=== PATIENT | male | born 1960 | race Caucasian/White ===

== ENCOUNTER → 2020-06-05 12:32 | Outpatient (CLI) | payer MEDICAID, SELFPAY ==
--- NOTE | 2020-06-05 12:36 | EKG12_ITS ---
Test Reason : PRE OP Blood Pressure : / mmHG Vent. Rate : 069 BPM Atrial Rate : 069 BPM P-R Int : 000 ms QRS Dur : 122 ms QT Int : 424 ms P-R-T Axes : 000 033 044 degrees QTc Int : 454 ms Sinus Rhythm with PAC's Left bundle branch block Abnormal ECG Confirmed by FERNIE DAWKINS, JENNIFER ([id number]), photography editor TANI MACIAS ([id number]) on 06/08/2020 10:36:08 AM Referred By: Leydi Miller Confirmed By:JENNIFER ENCISO MD
== END ==
PROVIDERS: PCP Nurse Practitioner Adult Health; Referring Provider Nurse Practitioner Adult Health; Visit Provider Nurse Practitioner Adult Health
DX: I49.9 Cardiac arrhythmia, unspecified (principal)
CPT/HCPCS: 93005; 93225; 93226

== ENCOUNTER → 2020-09-02 06:19 | Outpatient (CLI) | payer MEDICAID, SELFPAY ==
[2020-08-19 13:48] VITALS: BMI 24.7
--- NOTE | 2020-09-02 09:03 | STRESSREP ---
Stress Test Report Pharmacologic myocardial perfusion stress test. 59-year-old man with a history of hypertension and syncope. Stress protocol: Resting EKG demonstrates sinus bradycardia with a rate of 58 bpm frequent premature ventricular complexes noted in the pattern of bigeminy. Resting blood pressure is 144/78 mmHg. 0.4 mg of regadenoson was infused per usual protocol followed by rapid intravenous saline flush injection continuous quality assurance monitor final was performed. The maximum heart rate attained was 91 bpm which was 56% of max impacted heart rate the maximum workload was 1 metabolic equivalent. At rest there were no ST or T wave changes noted to suggest abnormal flow reserve at peak infusion nonspecific ST changes were noted with no meet the criteria for ischemia. The final blood pressure was 130/72 mmHg. Myocardial perfusion protocol. 11.4 mCi of technetium 99m sestamibi was injected at rest. 0.4 mg of regadenoson was infused per usual protocol at peak infusion 33.5 mCi of technetium 99m sestamibi was injected stress images were obtained stress and rest images were reconstructed and compared in the short axis vertical long horizontal long axis. Gated images were not obtained Perfusion SPECT analysis: Review of the stress images demonstrate normal uptake of tracer noted in all areas of myocardium the rest images similarly demonstrate normal uptake of tracer noted in all areas of the myocardium. No reversibility was noted to suggest ischemia no previous infarct is noted. Conclusion: Normal pharmacologic myocardial perfusion stress test. Premature ventricular complexes noted.
== END ==
PROVIDERS: PCP Nurse Practitioner Adult Health; Referring Provider Internal Medicine Cardiovascular Disease; Visit Provider Internal Medicine Cardiovascular Disease
DX: R55 Syncope and collapse (principal)
CPT/HCPCS: 78452; 93017; A9500; A4216; J2785

== ENCOUNTER → 2020-09-23 13:52 | Outpatient (CLI) | payer MEDICAID, SELFPAY ==
[2020-09-23 09:10] VITALS: BMI 24.0
[2020-09-23 14:53] LABS: Thyroid Stim Hormone (TSH) 0.39 uIU/mL (0.358-3.74)
== END ==
PROVIDERS: PCP Nurse Practitioner Adult Health; Referring Provider Internal Medicine Cardiovascular Disease; Visit Provider Internal Medicine Cardiovascular Disease
DX: I49.49 Other premature depolarization (principal)
CPT/HCPCS: 36415; 84443

== ENCOUNTER → 2020-10-13 13:45 | Outpatient (CLI) | payer MEDICAID, SELFPAY ==
[2020-10-13 13:00] VITALS: BMI 23.9
[2020-10-13 14:01] LABS: Absolute Lymphocyte Count 1.24 X10^3/uL (0.83-4.51); Absolute Neutrophil Count 5.9 X10^3/uL (2.0-7.7); Basophil# 0.02 X10^3/uL; Basophil% 0.2 % (0-1); Eosinophil# 0.03 X10^3/uL; Eosinophils% 0.4 % (0-5); Hematocrit 34.6 % (40-54); Hemoglobin 12.3 g/dL (13.0-16.5); Lymphocyte # 1.24 X10^3/ul (4.0); Lymphocyte % 15.1 % (19-41); Mean Corp Hgb Conc 35.5 g/dL (32-36); Mean Corpuscular Hgb 31.1 pg (27.0-32.0); Mean Corpuscular Volume 87.4 fL (80-94); Mean Platelet Vol. 8.9 fl (6.2-12.0); Monocyte# 0.97 X10^3/uL; Monocyte% 11.8 % (0-10); NRBC Flagged by Analyzer 0 % (0-5); Neutrophil # 5.88 X10^3/uL (2.7-7.7); Neutrophil % 71.6 % (47-70); Platelet Count 280 K/mm3 (150-450); RBC Distribution Width CV 13.5 % (11.6-14.6); RBC Distribution Width SD 43.3 fl (35.1-43.9); Red Blood Count 3.96 M/mm3 (4.6-6.2); White Blood Count 8.2 K/mm3 (4.4-11.0)
[2020-10-17 03:07] LABS: Alternaria tenuis <0.10 kU/L (Class 0); Ash, White <0.10 kU/L (Class 0); Aspergillus fumigatus <0.10 kU/L (Class 0); Bermuda Grass <0.10 kU/L (Class 0); Birch <0.10 kU/L (Class 0); Black Walnut <0.10 kU/L (Class 0); Cat Hair / Dander,Stand <0.10 kU/L (Class 0); Cedar, Mountain <0.10 kU/L (Class 0); Cladosporium herbarum <0.10 kU/L (Class 0); Cockroach, American 0.11 kU/L (Class 0/I); Cottonwood <0.10 kU/L (Class 0); D farinae Mite <0.10 kU/L (Class 0); D pteronyssinus <0.10 kU/L (Class 0); Dog Epithelia <0.10 kU/L (Class 0); Elm, American White <0.10 kU/L (Class 0); Immunoglobulin E 1672 IU/mL (6-495); Maple/Box Elder <0.10 kU/L (Class 0); Mulberry, White <0.10 kU/L (Class 0); Oak, White <0.10 kU/L (Class 0); Pecan <0.10 kU/L (Class 0); Penicillium Notatum <0.10 kU/L (Class 0); Pigweed, Rough <0.10 kU/L (Class 0); Ragweed, Short/Common <0.10 kU/L (Class 0); Russian Thistle <0.10 kU/L (Class 0); Sheep Sorrel <0.10 kU/L (Class 0); Sycamore, American <0.10 kU/L (Class 0); Timothy Grass <0.10 kU/L (Class 0)
[2020-10-17 07:51] LABS: Mouse Urine <0.10 kU/L (Class 0)
[2020-10-17 12:38] LABS: Immunoglobulin E 2136 IU/mL (6-495)
== END ==
PROVIDERS: PCP Nurse Practitioner Adult Health; Referring Provider Internal Medicine Critical Care Medicine; Visit Provider Internal Medicine Critical Care Medicine
DX: J44.9 Chronic obstructive pulmonary disease, unspecified (principal)
CPT/HCPCS: 36415; 82785; 85025; 86003

== ENCOUNTER → 2020-11-02 10:17 | Outpatient (CLI) | payer MEDICAID, SELFPAY ==
[2020-10-13 13:00] VITALS: BMI 23.9
--- NOTE | 2020-11-03 10:04 | PFT ---
INTRODUCTION: The patient is a 60-year-old male that presents for pulmonary function studies secondary to a diagnosis of COPD. Respiratory therapy reports good patient effort. Bronchodilators were used during testing. INTERPRETATION: Forced expiration spirometry demonstrates the presence of a moderately severe large airways obstructive ventilatory defect. There was no significant response to aerosolized bronchodilators. Spirograms are of good quality but do not plateau indicating slow emptying of the lungs. Body plethysmography was performed and revealed an elevated RV to 146% of predicted, indicative of underlying air trapping. Diffusing capacity by single breath CO is reduced at 67% of predicted. IMPRESSION: Irreversible moderately severe large airways obstructive ventilatory defect with associated air trapping and mild reduction in diffusing capacity.
== END ==
PROVIDERS: PCP Nurse Practitioner Adult Health; Referring Provider Internal Medicine Critical Care Medicine; Visit Provider Internal Medicine Critical Care Medicine
DX: J44.9 Chronic obstructive pulmonary disease, unspecified (principal)
CPT/HCPCS: 94060; 94726; 94729

== ENCOUNTER → 2020-11-26 06:33 | Outpatient (CLI) | payer MEDICAID, SELFPAY ==
[2020-10-13 13:00] VITALS: BMI 23.9
[2020-11-17 10:55] VITALS: BMI 23.4
--- NOTE | 2020-11-26 06:35 | CT_ITS ---
STUDY: LOW DOSE CT LUNG CANCER SCREENING REASON FOR EXAM: Male, 60 years old. Tobacco Dependency. Patient smoked half a pack per day for 40 years. RADIATION DOSAGE (If Supplied By Facility): CTDIvol = ( 2.01 ) mGy, DLP = ( 66.45 ) mGycm TECHNIQUE: No contrast was administered. Low dose technique was utilized (average mAS-38 and kVp 120). 1.25 mm axial source images with a slice interval of 1.25-mm were reconstructed in lung windows. 2.5 mm axial source images with a slice interval of 2.5-mm were reconstructed in lung windows. 5.0 mm axial source images with a slice interval of 5.0-mm were reconstructed in soft tissue windows. Nodule measured using lung windows on PACS and/or independent workstation with automated measurement of minimum and maximum diameter. Nodule measurement reported as average diameter rounded to the nearest whole number. Growth is defined as an increase ins size of greater than 1.5 mm. COMPARISON: None. NODULES: No suspicious nodules are seen. Emphysema: Hyperinflation. Emphysematous changes with findings suggestive of centrilobular emphysema. Bullous formation in both upper lobes worse on the right side. Bolus formation also seen in the lower lobes. There is thickening of the major fissures bilaterally suggestive of scarring. Mild linear scarring in the anterior aspect of the right middle lobe and lingular segment of the left upper lobe. Endobronchial lesion: None Aorta: Atherosclerotic plaque formation of the aortic arch. Coronary arteries: Coronary artery calcification. Mediastinal nodes: Small benign-appearing lymph nodes are seen within the mediastinum. Other chest and abdominal findings: CT/Low Dose CT Lung Screening IMPRESSION: Lung-RADS category 2 - Continue annual screening with LDCT in 12 months. IMPORTANT NOTES FOR USE: ACR Lung-RADS Version 1.1 Assessment Categories Release Date: 2018 Category: Coded 0-4 bases on nodule(s) with highest degree of suspicion. Negative screen is defined as categories 1 and 2; a positive screen is defined as categories 3 and 4. Category 3 and 4A nodules that are unchanged on interval CT should be coded as category 2, and individuals returned to screening in 12 months. Category 4X: Category 3 or 4 nodules with additional imaging findings that increase the suspicion of lung cancer, such as spiculation, GGN that doubles in size in 1 year, enlarged lymph notes, etc. Category Modifiers: S (significant finding unrelated to lung cancer) Electronically Signed: Diego Ricketts MD at 9:03 EDT , Service support ,
[2020-11-26 08:00] VITALS: PULSE 100; PULSE 101; PULSE 102; PULSE 80; PULSE 83; PULSE 99; O2SAT 94; O2SAT 96; O2SAT 97; O2SAT 98
--- NOTE | 2020-11-26 14:56 | PCM.PSN.6M ---
PSN 6 Minute Walk Test 6 Minute Walk Test 6 Minute Walk Test: 6 Minute Walk Test PSN:6-Minute Walk Test Start: 11/26/20 08:02 Freq: Status: Active Protocol: RESP.6MINW Document 11/26/20 08:00 ELSY (Rec: 11/26/20 08:06 [id number]) 6 Minute Walk Test Date Performed 11/26/20 Time Performed 08:00 Height 5 ft 5 in Weight: 68.039 kg Weight in Pounds 150.[address]: Venkat Rosales FIO2 (% Oxygen) 21 Assistive device used: None Pre-test Oxygen Delivery Method Room Air Pulse Ox (%) 97 Pulse Rate (60-100 beats/min) 80 Dyspnea Shorty Scale (0-10) 0 Exertion Shorty Scale (6-20) 6 1st minute Oxygen Delivery Method Room Air Pulse Ox (%) 94 Pulse Rate (60-100 beats/min) 101 H 2nd minute Oxygen Delivery Method Room Air Pulse Ox (%) 97 Pulse Rate (60-100 beats/min) 102 H 3rd minute Oxygen Delivery Method Room Air Pulse Ox (%) 96 Pulse Rate (60-100 beats/min) 99 4th minute Oxygen Delivery Method Room Air Pulse Ox (%) 96 Pulse Rate (60-100 beats/min) 102 H 5th minute Oxygen Delivery Method Room Air Pulse Ox (%) 97 Pulse Rate (60-100 beats/min) 101 H 6th minute Oxygen Delivery Method Room Air Pulse Ox (%) 96 Pulse Rate (60-100 beats/min) 100 Post-test Oxygen Delivery Method Room Air Pulse Ox (%) 98 Pulse Rate (60-100 beats/min) 83 Dyspnea Shorty Scale (0-10) 2 Exertion Shorty Scale (6-20) 8 Full Laps Walked 20 Partial Lap, Number of Tiles Walked 0 Total Distance Walked (ft) 1180 Interpretation Interpretation: The patient was able to ambulate 1180 feet over the course of 6 minutes on room air with no assistive devices or breaks. The patient experienced no significant desaturation, but did have a peak heart rate of 102 bpm. These findings are consistent with deconditioning. Recommendations Recommendations: The patient requires no supplemental oxygen at this time.
== END ==
PROVIDERS: PCP Nurse Practitioner Adult Health; Referring Provider Internal Medicine Critical Care Medicine; Visit Provider Internal Medicine Critical Care Medicine
DX: Z12.2 Encounter for screening for malignant neoplasm of respiratory organs (principal); J44.9 Chronic obstructive pulmonary disease, unspecified; F17.210 Nicotine dependence, cigarettes, uncomplicated
CPT/HCPCS: 71271; 94618

== ENCOUNTER 2021-08-09 12:18 | Outpatient (CLI) | payer MEDICAID, SELFPAY ==
[2021-08-09 12:49] LABS: Absolute Lymphocyte Count 1.14 X10^3/uL (0.83-4.51); Absolute Neutrophil Count 1.8 X10^3/uL (2.0-7.7); Basophil# 0.06 X10^3/uL; Basophil% 1.3 % (0-1); Eosinophil# 0.83 X10^3/uL; Eosinophils% 18.1 % (0-5); Hematocrit 42.2 % (40-54); Hemoglobin 14.9 g/dL (13.0-16.5); Lymphocyte # 1.14 X10^3/ul (0.83-4.51); Lymphocyte % 24.9 % (19-41); Mean Corp Hgb Conc 35.3 g/dL (32-36); Mean Corpuscular Hgb 30.7 pg (27.0-32.0); Mean Corpuscular Volume 86.8 fL (80-94); Mean Platelet Vol. 9.4 fl (6.2-12.0); Monocyte# 0.77 X10^3/uL; Monocyte% 16.8 % (0-10); NRBC Flagged by Analyzer 0 % (0-5); Neutrophil # 1.75 X10^3/uL (2.7-7.7); Neutrophil % 38.2 % (47-70); Platelet Count 239 K/mm3 (150-450); RBC Distribution Width CV 13.5 % (11.6-14.6); RBC Distribution Width SD 43.4 fl (35.1-43.9); Red Blood Count 4.86 M/mm3 (4.6-6.2); White Blood Count 4.6 K/mm3 (4.4-11.0)
--- NOTE | 2021-08-09 12:57 | RAD_ITS ---
STUDY: X-RAY CHEST REASON FOR EXAM: Male, 60 years old. CHRONIC OBSTRUCTIVE PULMONARY DISEASE W/ACUTE EXCERBATION TECHNIQUE: PA and lateral views of the chest. COMPARISON: 05/06/1960 FINDINGS: There is hyperinflation of the lungs consistent with chronic obstructive lung disease (COPD). There is no demonstrated pleural abnormality. Normal size heart. Normal mediastinum and fran. Normal visualized pulmonary arteries. Normal visualized aortic arch and descending thoracic aorta. Normal visualized thoracic spine. Normal visualized ribs, clavicles, and shoulders. There is no demonstrated abnormality of the visualized soft tissue structures of the upper abdomen. RAD/Chest PA and Lateral IMPRESSION: Emphysema without pneumonia or atelectasis. Electronically Signed: Werner Gatica MD at 16:58 EST Tel , Service support ,
[2021-08-09 13:30] LABS: Vitamin B12 286 pg/mL (211-911); Vitamin D,25 Hydroxy 31.3 ng/mL
[2021-08-09 13:41] LABS: ALB/GLOB Ratio 1.1 RATIO (0.9-2.4); AST(SGOT) 13 U/L (15-37); Alanine Aminotransfer ALT/SGPT 18 U/L (16-61); Albumin, Serum 4.2 g/dL (3.2-5.0); Alkaline Phosphatase 58 U/L (45-117); Anion Gap 6 (5-15); BUN 13 mg/dL (7-18); BUN/Creat Ratio 14.6 RATIO (10-20); Calcium,Total 9.5 mg/dL (8.5-10.1); Chloride 99 mmol/L (98-107); Cholesterol 168 mg/dL (200); Creatinine, Serum 0.89 mg/dL (0.70-1.30); EST Glomerular Filtration Rate 92 mL/min (>60); Est Glom Filt Rate - Afr Amer 112 mL/min (>60); Globulin 3.8 g/dL (2.2-4.2); Glucose 92 mg/dL (74-106); High Density Lipoprotein 52 mg/dL; Potassium 4.4 mmol/L (3.5-5.1); Sodium Level 134 mmol/L (136-145); Thyroid Stim Hormone (TSH) 2.08 uIU/mL (0.358-3.74); Triglycerides 114 mg/dL; Very Low Density Lipoprotein 23 mg/dL (5-40)
== END 2021-08-09 23:59 | disposition short-term general hospital (02) ==
LOC: LAB 12:20
PROVIDERS: Visit Provider Nurse Practitioner Adult Health
DX: J44.1 Chronic obstructive pulmonary disease with (acute) exacerbation (principal); R21 Rash and other nonspecific skin eruption; Z13.220 Encounter for screening for lipoid disorders; Z13.21 Encounter for screening for nutritional disorder; I10 Essential (primary) hypertension
CPT/HCPCS: 36415; 71046; 80053; 80061; 82306; 82607; 84443; 85025

== ENCOUNTER → 2021-11-08 | Outpatient (CLI) | payer MEDICAID, SELFPAY ==
--- NOTE | 2021-11-08 08:55 | RAD_ITS ---
INDICATION: UNSPECIFIED ABD PAIN EXAMINATION/TECHNIQUE: X-RAY - XR Abdomen W/ Decub and/or Erect Views COMPARISON: Chest radiograph from 08/09/2021. 05/06/2016. FINDINGS: BOWEL GAS PATTERN: Moderate stool burden throughout the large bowel. Otherwise nonobstructive bowel gas pattern. FREE AIR: None. CALCIFICATIONS: No abnormal calcifications observed. LOWER CHEST: No acute pathology. BONES AND SOFT TISSUES: No acute pathology. RAD/Abd Inc Decub and/or Erect IMPRESSION: Moderate stool burden throughout the large bowel suggestive of constipation. Otherwise no acute findings. Electronically Signed: Noble Martin, at 9:38 EDT ,
== END | disposition home or self-care (01) ==
LOC: RAD 08:52
PROVIDERS: Referring Provider Nurse Practitioner Adult Health; Visit Provider Nurse Practitioner Adult Health
DX: R10.9 Unspecified abdominal pain (principal); K59.00 Constipation, unspecified
CPT/HCPCS: 74019

== ENCOUNTER → 2021-11-29 | Outpatient (CLI) | payer MEDICAID, SELFPAY ==
--- NOTE | 2021-11-29 13:02 | CT_ITS ---
STUDY: LOW DOSE CT LUNG CANCER SCREENING REASON FOR EXAM: Male, 61 years old. Patient spoke one pack per day for 40 years. COPD. RADIATION DOSAGE (If Supplied By Facility): CTDIvol = ( 1.59 ) mGy, DLP = ( 57.19 ) mGycm TECHNIQUE: No contrast was administered. Low dose technique was utilized (average mAS-38 and kVp 120). 1.25 mm axial source images with a slice interval of 1.25-mm were reconstructed in lung windows. 2.5 mm axial source images with a slice interval of 2.5-mm were reconstructed in lung windows. 5.0 mm axial source images with a slice interval of 5.0-mm were reconstructed in soft tissue windows. COMPARISON: Comparison is made with prior study dated 11/26/2020. NODULES: No suspicious nodules are seen. Emphysema: Hyperinflation. Diffuse emphysematous changes with multiple bullous formation in both lungs involving both the upper and lower lobes. Mild scarring at the lung bases with thickening of the major fissures bilaterally. Endobronchial lesion: None Aorta: Atherosclerotic plaque formation of the aortic arch. CORONARY ARTERIES: Coronary artery calcification Heart: Unremarkable Pulmonary artery: Unremarkable Mediastinal nodes: Stable small benign-appearing mediastinal lymph nodes. Other chest and abdominal findings: CT/Low Dose CT Lung Screening IMPRESSION: Lung-RADS category 2 - Continue annual screening with LDCT in 12 months. IMPORTANT NOTES FOR USE: ACR Lung-RADS Version 1.1 Assessment Categories Release Date: 2018 Category: Coded 0-4 bases on nodule(s) with highest degree of suspicion. Negative screen is defined as categories 1 and 2; a positive screen is defined as categories 3 and 4. Category 3 and 4A nodules that are unchanged on interval CT should be coded as category 2, and individuals returned to screening in 12 months. Category 4X: Category 3 or 4 nodules with additional imaging findings that increase the suspicion of lung cancer, such as spiculation, GGN that doubles in size in 1 year, enlarged lymph notes, etc. Category Modifiers: S (significant finding unrelated to lung cancer) Electronically Signed: Diego Ricketts MD at 15:00 EDT ,
== END | disposition home or self-care (01) ==
LOC: CT 12:54
PROVIDERS: Visit Provider Nurse Practitioner Acute Care
DX: Z12.2 Encounter for screening for malignant neoplasm of respiratory organs (principal); F17.210 Nicotine dependence, cigarettes, uncomplicated
CPT/HCPCS: 71271

== ENCOUNTER → 2022-03-23 | Outpatient (CLI) | payer MEDICAID, SELFPAY ==
[2022-03-23 14:07] LABS: D-Dimer Quantitative (DVT/PE) 0.85 FEU/ug/m (0.27-0.49)
== END | disposition home or self-care (01) ==
PROVIDERS: Referring Provider Nurse Practitioner Acute Care; Visit Provider Nurse Practitioner Acute Care
DX: R06.02 Shortness of breath (principal)
CPT/HCPCS: 36415; 85379

== ENCOUNTER → 2022-03-30 | Outpatient (CLI) | payer MEDICAID, SELFPAY ==
--- NOTE | 2022-03-30 14:14 | CT_ITS ---
STUDY: CTA CHEST REASON FOR EXAM: Male, 61 years old. Rule out PE. Shortness of breath. History of Covid. RADIATION DOSAGE (If Supplied By Facility): CTDIvol = ( 6.73 ) mGy, DLP = ( 216.52 ) mGycm TECHNIQUE: The examination was performed with the intravenous administration of IV 100mL Isovue-370. Post-processing of the angiographic images was performed, with multiplanar reformation and 3D reconstruction. Individualized dose optimization techniques were used for this CT. COMPARISON: Comparison is made with prior study 11/26/2020. FINDINGS: Normal enhancement of the main pulmonary artery and right and left pulmonary arteries. Normal enhancement of the bilateral peripheral pulmonary arteries. There is no demonstrated pulmonary embolism. There is atherosclerotic calcification of the aortic arch with tortuosity. There is no demonstrated aortic dissection. There are calcifications of the coronary arteries. Normal mediastinum. Normal hilar regions. Normal visualized trachea and bronchi. Hyperinflation. Diffuse emphysematous changes with bullous formation worse in the upper and lower lobes with a large bulla formation. Mild scarring at the lung bases. Normal pleura. Normal chest wall structures. There are degenerative changes of thoracic spine. Loss of height of mid dorsal vertebrae. Normal visualized upper abdomen. CT/CTA Chest W/WO Contrast IMPRESSION: No evidence of a pulmonary embolism. Hyperinflation and diffuse emphysematous changes with bullous formation. Electronically Signed: Diego Ricketts MD at 14:59 EDT ,
[2022-03-30 14:46] LABS: CREATININE FINGERSTICK < 0.9 mg/dL (0.70-1.30); EGFR FINGERSTICK > 60.0000 mL/min (>60)
== END | disposition home or self-care (01) ==
LOC: CT 14:14
PROVIDERS: Referring Provider Nurse Practitioner Acute Care; Visit Provider Nurse Practitioner Acute Care
DX: R79.89 Other specified abnormal findings of blood chemistry (principal)
CPT/HCPCS: 71275; Q9967

== ENCOUNTER → 2022-06-01 | Outpatient (CLI) | payer MEDICAID, SELFPAY ==
[2022-06-01 13:39] LABS: Erythrocyte Sedimentation Rate 6 mm/hr (0-20)
[2022-06-01 13:45] LABS: Absolute Lymphocyte Count 0.36 X10^3/uL (0.83-4.51); Absolute Neutrophil Count 6.5 X10^3/uL (2.0-7.7); Basophil# 0.01 X10^3/uL; Basophil% 0.1 % (0-1); Hematocrit 35.1 % (40-54); Lymphocyte # 0.36 X10^3/ul (0.83-4.51); Lymphocyte % 4.8 % (19-41); Mean Corp Hgb Conc 34.2 g/dL (32-36); Mean Corpuscular Hgb 30.9 pg (27.0-32.0); Mean Corpuscular Volume 90.5 fL (80-94); Mean Platelet Vol. 10.5 fl (6.2-12.0); Monocyte# 0.54 X10^3/uL; Monocyte% 7.3 % (0-10); NRBC Flagged by Analyzer 0 % (0-5); Neutrophil # 6.48 X10^3/uL (2.7-7.7); Neutrophil % 87.3 % (47-70); POSITIVE DIFFERENTIAL YES; Platelet Count 230 K/mm3 (150-450); RBC Distribution Width CV 14.5 % (11.6-14.6); RBC Distribution Width SD 47.9 fl (35.1-43.9); Red Blood Count 3.88 M/mm3 (4.6-6.2); White Blood Count 7.4 K/mm3 (4.4-11.0)
[2022-06-01 13:49] LABS: Differential Indicated SCAN CRITERIA MET
[2022-06-01 14:06] LABS: Platelet Estimate ADEQUATE (ADEQ); Red Cell Morphology NORM C+C NORMAL (NORM C&C)
[2022-06-01 14:22] LABS: Anion Gap 7 (5-15); BUN 13 mg/dL (7-18); BUN/Creat Ratio 14.2 RATIO (10-20); CRP < 2.90 mg/L (0.0-3.0); Calcium,Total 8.6 mg/dL (8.5-10.1); Chloride 98 mmol/L (98-107); Creatinine, Serum 0.92 mg/dL (0.70-1.30); EST Glomerular Filtration Rate 90 mL/min (>60); Est Glom Filt Rate - Afr Amer 108 mL/min (>60); Glucose 104 mg/dL (74-106); Potassium 3.7 mmol/L (3.5-5.1); Sodium Level 132 mmol/L (136-145); Thyroid Stim Hormone (TSH) 0.51 uIU/mL (0.358-3.74)
[2022-06-06 17:25] LABS: Vitamin D 1,25-Dihydroxy 66.7 pg/mL (24.8-81.5)
== END | disposition home or self-care (01) ==
PROVIDERS: Internal Medicine Gastroenterology
DX: R29.6 Repeated falls (principal); R04.0 Epistaxis
CPT/HCPCS: 36415; 80048; 82652; 83735; 84443; 85025; 85652; 86140

== ENCOUNTER 2022-06-07 11:19 | Outpatient (CLI) | payer MEDICAID, SELFPAY ==
[2022-06-07 13:04] LABS: Vitamin B12 462 pg/mL (211-911)
[2022-06-07 13:12] LABS: Iron 89 ug/dL (65-175); Iron Binding Capacity,Total 354 ug/dL (250-450); PERCENT IRON SATURATION 25.1 % (15.0-55.0)
== END 2022-06-07 23:59 | disposition home or self-care (01) ==
PROVIDERS: Referring Provider Nurse Practitioner Family; Visit Provider Nurse Practitioner Family
DX: K50.90 Crohn's disease, unspecified, without complications (principal)
CPT/HCPCS: 36415; 82607; 82746; 83540; 83550

== ENCOUNTER → 2022-06-08 | Outpatient (CLI) | payer MEDICAID, SELFPAY ==
--- NOTE | 2022-06-08 19:10 | CT_ITS ---
STUDY: CT BRAIN WITHOUT CONTRAST REASON FOR EXAM: Male, 61 years old. REPEATED FALLS RADIATION DOSAGE (If Supplied By Facility): CTDIvol = ( 44.99 ) mGy, DLP = ( 846.73 ) mGycm TECHNIQUE: Transaxial CT imaging of the brain was performed without administration of intravenous contrast material. Individualized dose optimization techniques were used for this CT. COMPARISON: No relevant priors. FINDINGS: Normal soft tissue structures. Normal calvarium. Normal size ventricles and extra-axial spaces for the patient''s age. Normal white matter tracts of the cerebral hemispheres. Normal basal ganglia and thalami. Normal brainstem. Normal cerebellum. There is no intracranial hemorrhage. There are no findings of an acute ischemic infarction. There is mucosal thickening of the paranasal sinuses. CT/Brain/Head without Contrast IMPRESSION: Normal unenhanced CT scan of the brain. Electronically Signed: Danielito Dial MD at 19:51 EST ,
== END | disposition home or self-care (01) ==
DX: R29.6 Repeated falls (principal)
CPT/HCPCS: 70450

== ENCOUNTER 2022-07-05 12:43 | Day surgery (SDC) | payer MEDICAID, SELFPAY ==
[2022-07-05] VITALS (7 sets, daily range): BP systolic 146–166; BP diastolic 79–94; PULSE 56–69; RESP 16; TEMP 36.6–36.7; O2SAT 98–100; BMI 22.7
--- NOTE | 2022-07-05 12:50 | HP.PCM_ITS ---
History and Physical Date of Admission: 07/05/22 61 M who presents to the office today for Initial consult. Tasia established with this clinic 05.16.22 with referral from PCP. He was having difficulty with fatigue and pruritis Crohn?s Disease, previously diagnosed in 1994. He has been in remission for the last 5 years and medications were stopped. Previously maintained on an infusion with pills starting three days after infusion. However, in the last two months he has been having upper abdominal discomfort. At onset he was having col onoscopies approximately every month because of the amount of blood and resulting anemia; has not had one in the last ten years. Reports history of 65 polyps removed during one colonoscopy in the 1989?s. Denies Crohn?s complications. Fall of 65 feet in the last year with a lot of musculoskeletal issues and subsequent BM difficulty. Difficulty swallowing intermittently. History of EGD because of intense reflux. PMH asthma, COPD, anxiety, HTN, TIA. Established with pain management for chronic back pain. FH 5 brothers with CAD requiring stenting and history of ND versus NSTEMI. Father esophageal cancer. EGD [address] Alexandra CC. Pathology without pathologic changes or H.Pylori. CT abd/pel 1.6. for trauma noting diverticulosis; hypodense left kidney lesion. KUB 4.25. for abd pain noted moderate stool burden in large bowel. Exam Const General: cooperative and comfortable Nutritional Appearance: average body habitus and well nourished [facility] Head: normal to inspection Ears: hearing grossly normal bilaterally Nose: external nose normal Face and sinus: normal facial exam Mouth: oral mucosae normal Throat: posterior oropharynx normal Eyes General: appearance normal, both eyes and all related structures Neck Neck: normal visual inspection Chest Chest palpation & inspection: normal inspection of the chest and normal palpation of entire chest wall Resp Effort & Inspection: normal respiratory effort Auscultation: Bilateral: Clear to Auscultation Cardio Palpation: normal PMI Rate: regular rate Rhythm: regular rhythm GI Inspection: normal to inspection Auscultation: normal bowel sounds Percussion: normal to percussion Palpation: no hepatosplenomegaly Skin General: no rashes or lesions noted Neuro General: patient alert Extrem General: normal to inspection Psych Affect: normal affect Quality Reporting Tobacco Screening ([facility]) Smoking Status: Current every day smoker Assessment and Plan Assessment and Plan (1) Crohn's disease: ?Status:?Chronic ?Plan: Patient says that he has a history of inflammatory bowel disease in particular Crohn's disease of the small bowel and possibly large bowel.? He does not take any medicines on a daily basis.? He has more constipation.? That could be secondary to stricturing disease.? I do not see any evidence of fiber stenotic or fistulizing disease.? He does self medicate with marijuana on a twice a week basis.? He has never had any surgery for Crohn's disease.? As far as he no he is not being on any TNF medicines, immunodulators or steroids.? He will get an upper and lower endoscopy to evaluate his upper lower GI tract due to bloating and abdominal pain and history of Crohn's disease. (2) Constipation: ?Status:?Chronic ?Plan: It sounds as if he has chronic idiopathic constipation.? His imaging did show constipation and he is going to the bathroom every 4 to 5 days with the use of enemas.? I will give him samples of Linzess 290 mcg a day. ? ? ? Orders: Orders CRP Today K50.90 - Crohn's disease, unspecified, without complications ? CBC W/Diff, Automated Today K50.90 - Crohn's disease, unspecified, without complications ? Erythrocyte Sed Rate Today K50.90 - Crohn's disease, unspecified, without complications ? Miscellaneous Lab Procedure Today K50.90 - Crohn's disease, unspecified, without complications ? I have examined the patient and the H&P has been reviewed. There are no clinical changes since date of exam.
[2022-07-05] MEDS: Lactated Ringers 1,000 ML 15 ML IV (13:17)
--- NOTE | 2022-07-05 14:00 | IMM_PTH ---
PATIENT: BERT FULTON LOC: EN U#:[id number] AGE/SX: 61/M ROOM: RE07/05/[address]: Dr. Chun Ríos DO : 1960 BED: DIS: 07/05/2022 SPEC #: [id number] RECD: 07/06/22 13:11 STATUS: DARBY REQ #: [id number] [place]: 07/05/22 14:[address]: Chun Ríos DEPT: IMMUNOHISTOCHEMISTRY RECD BY: Dinah Espinosa ENTERED: 07/06/22 13:12 SP TYPE: IMMUNO OTHR DR: Rosita [facility] Tissues: A - Stomach, NOS Procedures: H Pylori (initial) PHYSICIAN & INSTITUTION [place] [id number] SPECIMEN INFORMATION: Tissue Source: A ? Gastric body Clinical Info: Crohn?s disease Specimen Number: [id number] CPT code: 19455 METHODOLOGY: Deparaffinized sections of prefer/formalin-fixed tissue or PAP/DQ stained slides are incubated with monoclonal/polyclonal antibodies/oligonucleotide probes. Localization is made via biotin free immunoperoxidase method. Appropriate controls are performed and reacted as expected. Results on target cell population are indicated in the following table: RESULTS: ANTIBODY / CLONE RESULT Block A H Pylori (polyclonal) negative These tests were developed and their performance characteristics determined by [facility]. They may not have been cleared or approved by the U.S. Food and Drug Administration. The FDA has determined that such clearance or approval is not necessary. The above immunohistochemical/dualISH markers are ordered and reviewed by the Pathologist. INTERPRETATION: A. Gastric body, biopsy: Negative for Helicobacter pylori organisms. SJ:stuart 07/07/2022
--- NOTE | 2022-07-05 14:00 | EGD_PTH ---
PATIENT: BERT FULTON LOC: EN U#:[id number] AGE/SX: 61/M ROOM: RE07/05/[address]: Dr. Chun Ríos DO : 1960 BED: DIS: 07/05/2022 SPEC #: [id number] RECD: 07/05/22 17:59 STATUS: DARBY JUAN PABLO #: [id number] [place]: 07/05/22 14:[address]: Chun Ríos DEPT: SURGICAL PATHOLOGY RECD BY: Nina Grider ENTERED: 07/06/22 08:56 SP TYPE: EGD BIOPSY OT DR: Rosita [facility] Tissues: A - Gastric mucous membrane B - Gastric mucous membrane C - Esophagus, NOS D - Cecum, NOS E - Transverse colon Procedures: Special Stain Group II Surgery Specimen Level IV Alcian Blue/PAS (control) HEADER OPERATION: Colonoscopy with biopsy, EGD with biopsy ([facility] [place] PRE-OP DIAGNOSIS: Crohn?s disease TISSUE SUBMITTED: A ? Gastric body biopsy, B ? Gastric cardia biopsy, C ? Distal esophagus biopsy, D ? IC valve biopsy, E ? Transverse polyp biopsy MICROSCOPIC DIAGNOSIS A. Gastric body, biopsy: Mild gastritis. See microscopic description and comment. B. Gastric cardia, biopsy: Mild gastritis. See comment. C. Distal esophagus, biopsy: Fragments of gastroesophageal mucosa with chronic inflammation. Intestinal metaplasia (goblet cell metaplasia) not identified. See comment. D. Ileocecal valve, biopsy: Fragments of small intestinal mucosa, no pathologic diagnosis. E. Transverse colon polyp, biopsy: Tubular adenoma. SJ:stuart 07/07/2022 COMMENT A. The results of immunohistochemistry for Helicobacter pylori will be reported separately ([id number]). C. Alcian blue/PAS stain with matched control is used in the evaluation of the specimen. MICROSCOPIC DESCRIPTION Slides are reviewed. A & B. The specimen shows fragments of gastric mucosa with chronic inflammatory cell infiltrates in the lamina propria consisting of lymphocytes and plasma cells, consistent with mild chronic gastritis. GROSS DESCRIPTION A - Received in fixative is one container labeled with the patient's name and designated gastric body. The specimen consists of one irregular fragment of light iglesias soft tissue that measures 0.3 x 0.3 x 0.1 cm. The specimen is totally submitted in one cassette. B - Received in fixative is one container labeled with the patient's name and designated gastric cardia. The specimen consists of two irregular fragments of light iglesias soft tissue that in aggregate measure 1 x 0.2 x 0.1 cm. The specimen is totally submitted in one cassette. C - Received in fixative is one container labeled with the patient's name and designated distal esophagus. The specimen consists of multiple irregular fragments of light iglesias soft tissue that in aggregate measure 1 x 0.2 x 0.1 cm. The specimen is totally submitted in one cassette. D - Received in fixative is one container labeled with the patient's name and designated ileocecal valve. The specimen consists of two irregular fragments of light iglesias soft tissue that in aggregate measure 0.6 x 0.3 x 0.1 cm. The specimen is totally submitted in one cassette. E - Received in fixative is one container labeled with the patient's name and designated biopsy transverse polyp. The specimen consists of one irregular fragment of light iglesias soft tissue that measures 0.3 x 0.3 x 0.1 cm. The specimen is totally submitted in one cassette. / SJ:rg 07/06/2022 TC:1 CPT: 38765 x5, 23234
--- NOTE | 2022-07-05 15:03 | OP.CCLET_ITS ---
07/05/2022 Rosita Romano [facility] Re : Upper GI endoscopy procedure for Tasia Quach [facility] This procedure was performed on Tuesday, July 05, 2022. My impressions and recommendations are as follows: Impressions : - Z-line irregular, 38 cm from the incisors. Biopsied. - Small hiatal hernia. - Gastritis. Biopsied. - Normal second portion of the duodenum. Biopsied. Recommendations : - Discharge patient to home. - Resume previous diet. - Continue present medications. - Await pathology results. My findings are described in the full procedure note, which is enclosed. If I can be of further assistance, please feel free to contact me at . Sincerely, Chun Ríos, 07/05/2022 3:03:05 PM This report has been signed electronically.
--- NOTE | 2022-07-05 15:03 | OP.EGD_ITS ---
Patient Name: Tasia Martinez Procedure Date: 07/05/2022 2:15 PM Date of : 1960 Age: 61 Procedure: Upper GI endoscopy Indications: Epigastric abdominal pain Providers: Chun Ríos DO Referring MD: Rosita Romano [facility] Medicines: Monitored Anesthesia Care Complications: No immediate complications. Procedure: Pre-Anesthesia Assessment: - Prior to the procedure, a History and Physical was performed, and patient medications and allergies were reviewed. The patient is competent. The risks and benefits of the procedure and the sedation options and risks were discussed with the patient. All questions were answered and informed consent was obtained. Patient identification and proposed procedure were verified by the physician in the pre-procedure area. Mental Status Examination: alert and oriented. Airway Examination: normal oropharyngeal airway and neck mobility. Respiratory Examination: clear to auscultation. CV Examination: normal. Prophylactic Antibiotics: The patient does not require prophylactic antibiotics. Prior Anticoagulants: The patient has taken no previous anticoagulant or antiplatelet agents. ASA Grade Assessment: II - A patient with mild systemic disease. After reviewing the risks and benefits, the patient was deemed in satisfactory condition to undergo the procedure. The anesthesia plan was to use monitored anesthesia care (MAC). Immediately prior to administration of medications, the patient was re-assessed for adequacy to receive sedatives. The heart rate, respiratory rate, oxygen saturations, blood pressure, adequacy of pulmonary ventilation, and response to care were monitored throughout the procedure. The physical status of the patient was re-assessed after the procedure. After obtaining informed consent, the endoscope was passed under direct vision. Throughout the procedure, the patient's blood pressure, pulse, and oxygen saturations were monitored continuously. The colonoscope was introduced through the mouth, and advanced to the second part of duodenum. The upper GI endoscopy was accomplished without difficulty. Scope In: 2:26:16 PM Scope Out: 2:30:45 PM Total Procedure Duration Time 0 hours 4 minutes 29 seconds Findings: The Z-line was irregular and was found 38 cm from the incisors. Biopsies were taken with a cold forceps for histology. Verification of patient identification for the specimen was done. Estimated blood loss was minimal. A small hiatal hernia was present. Patchy mild inflammation characterized by erythema was found in the gastric body. Biopsies were taken with a cold forceps for histology. Verification of patient identification for the specimen was done. Estimated blood loss was minimal. The second portion of the duodenum was normal. Biopsies were taken with a cold forceps for histology. Verification of patient identification for the specimen was done. Estimated blood loss was minimal. Impression: - Z-line irregular, 38 cm from the incisors. Biopsied. - Small hiatal hernia. - Gastritis. Biopsied. - Normal second portion of the duodenum. Biopsied. Recommendation: - Discharge patient to home. - Resume previous diet. - Continue present medications. - Await pathology results. Procedure Code(s): --- Professional --- 33331, Esophagogastroduodenoscopy, flexible, transoral; with biopsy, single or multiple CPT copyright 2017 [employer]. All rights reserved. The codes documented in this report are preliminary and upon dope heater review may be revised to meet current compliance requirements. Chun Ríos DO 07/05/2022 3:03:05 PM This report has been signed electronically. Number of Addenda: 0 Note Initiated On: 07/05/2022 2:15 PM
--- NOTE | 2022-07-05 15:09 | OP.COLON_ITS ---
Patient Name: Tasia Martinez Procedure Date: 07/05/2022 2:31 PM Date of : 1960 Age: 61 Procedure: Colonoscopy Indications: Crohn's disease of the small bowel Providers: Chun Ríos DO Referring MD: Rosita Romano [facility] Medicines: Monitored Anesthesia Care Patient Profile: This is a 61 year old male. Refer to note in patient chart for documentation of history and physical. Last Colonoscopy: 5 years ago. Complications: No immediate complications. Procedure: Pre-Anesthesia Assessment: - Prior to the procedure, a History and Physical was performed, and patient medications and allergies were reviewed. The patient is competent. The risks and benefits of the procedure and the sedation options and risks were discussed with the patient. All questions were answered and informed consent was obtained. Patient identification and proposed procedure were verified by the physician in the pre-procedure area. Mental Status Examination: alert and oriented. Airway Examination: normal oropharyngeal airway and neck mobility. Respiratory Examination: clear to auscultation. CV Examination: normal. Prophylactic Antibiotics: The patient does not require prophylactic antibiotics. Prior Anticoagulants: The patient has taken no previous anticoagulant or antiplatelet agents. ASA Grade Assessment: II - A patient with mild systemic disease. After reviewing the risks and benefits, the patient was deemed in satisfactory condition to undergo the procedure. The anesthesia plan was to use monitored anesthesia care (MAC). Immediately prior to administration of medications, the patient was re-assessed for adequacy to receive sedatives. The heart rate, respiratory rate, oxygen saturations, blood pressure, adequacy of pulmonary ventilation, and response to care were monitored throughout the procedure. The physical status of the patient was re-assessed after the procedure. After I obtained informed consent, the scope was passed under direct vision. Throughout the procedure, the patient's blood pressure, pulse, and oxygen saturations were monitored continuously. The colonoscope was introduced through the anus and advanced to the terminal ileum. The colonoscopy was performed without difficulty. The patient tolerated the procedure well. The quality of the bowel preparation was good. Scope In: 2:32:37 PM Scope Withdrawal Time 0 hours 20 minutes 25 seconds Scope Out: 2:56:04 PM Total Procedure Duration Time 0 hours 23 minutes 27 seconds Findings: Hemorrhoids were found on perianal exam. Anal papilla(e) were hypertrophied. A 5 mm polyp was found in the transverse colon. The polyp was sessile. The polyp was removed with a cold snare. Resection and retrieval were complete. Verification of patient identification for the specimen was done. Estimated blood loss was minimal. A few small-mouthed diverticula were found in the sigmoid colon. A benign-appearing, intrinsic moderate stenosis measuring 2 cm (in length) x 3 mm (inner diameter) was found at the ileocecal valve and was traversed after dilation. Biopsies were taken with a cold forceps for histology. Verification of patient identification for the specimen was done. Estimated blood loss was minimal. A TTS dilator was passed through the scope. Dilation with a 15 mm colonic balloon dilator was performed. The dilation site was examined and showed mild improvement in luminal narrowing. Impression: - Hemorrhoids found on perianal exam. - Anal papilla(e) were hypertrophied. - One 5 mm polyp in the transverse colon, removed with a cold snare. Resected and retrieved. - Diverticulosis in the sigmoid colon. - Stricture at the ileocecal valve. Biopsied. Dilated. Recommendation: - Discharge patient to home. - Resume previous diet. - Continue present medications. - Await pathology results. - Repeat colonoscopy in 2 years for surveillance. Procedure Code(s): --- Professional --- 77469, Colonoscopy, flexible; with removal of tumor(s), polyp(s), or other lesion(s) by snare technique 83173, Colonoscopy, flexible; with transendoscopic balloon dilation 68721, 59, Colonoscopy, flexible; with biopsy, single or multiple CPT copyright 2017 [employer]. All rights reserved. The codes documented in this report are preliminary and upon master automotive glass technician review may be revised to meet current compliance requirements. Chun Ríso DO 07/05/2022 3:08:54 PM This report has been signed electronically. Number of Addenda: 0 Note Initiated On: 07/05/2022 2:31 PM
--- NOTE | 2022-07-05 15:09 | OP.CCLET_ITS ---
07/05/2022 Rosita Romano [facility] Re : Colonoscopy procedure for Tasia Quach [facility] This procedure was performed on Tuesday, July 05, 2022. My impressions and recommendations are as follows: Impressions : - Hemorrhoids found on perianal exam. - Anal papilla(e) were hypertrophied. - One 5 mm polyp in the transverse colon, removed with a cold snare. Resected and retrieved. - Diverticulosis in the sigmoid colon. - Stricture at the ileocecal valve. Biopsied. Dilated. Recommendations : - Discharge patient to home. - Resume previous diet. - Continue present medications. - Await pathology results. - Repeat colonoscopy in 2 years for surveillance. My findings are described in the full procedure note, which is enclosed. If I can be of further assistance, please feel free to contact me at . Sincerely, Chun Ríos, 07/05/2022 3:08:54 PM This report has been signed electronically.
== END 2022-07-05 15:47 | disposition home or self-care (01) ==
LOC: EN 12:44 → AC 12:46
PROVIDERS: Visit Provider Internal Medicine Gastroenterology
PROC: 0DJD8ZZ Inspection of Lower Intestinal Tract, Via Natural or Artificial Opening Endoscopic (ICD-10-PCS; CPT 45378; principal; 2022-07-05 13:55)
DX: K44.9 Diaphragmatic hernia without obstruction or gangrene (principal); K50.90 Crohn's disease, unspecified, without complications; K57.30 Diverticulosis of large intestine without perforation or abscess without bleeding; K63.5 Polyp of colon; K29.70 Gastritis, unspecified, without bleeding; K64.9 Unspecified hemorrhoids; F17.200 Nicotine dependence, unspecified, uncomplicated
CPT/HCPCS: 45385; 45380; 43239; 45386; 88305; 88313; 88342; J7120; J2405

== ENCOUNTER → 2022-08-19 | Outpatient (CLI) | payer MEDICAID, SELFPAY ==
--- NOTE | 2022-08-19 09:19 | RAD_ITS ---
STUDY: X-RAY - ABDOMEN/PELVIS REASON FOR EXAM: Male, 61 years old. Capsule endoscopy not evacuated TECHNIQUE: Single AP view of the abdomen / pelvis. COMPARISON: Comparison is made with prior study dated 11/08/2021. FINDINGS: Normal visualized lung bases. There is an unremarkable bowel gas pattern. There is no demonstrated free abdominal air. The visualized liver, spleen and kidneys are grossly normal in size and morphology. Normal soft tissue structures. Degenerative changes of the sacroiliac joints. RAD/Abdomen Single View IMPRESSION: Normal x-ray examination of the abdomen and pelvis. Electronically Signed: Diego Ricketts MD at 14:05 EST ,
== END | disposition home or self-care (01) ==
LOC: RAD 09:18
PROVIDERS: Visit Provider Internal Medicine Gastroenterology
DX: R10.9 Unspecified abdominal pain (principal)
CPT/HCPCS: 74018

== ENCOUNTER → 2022-08-24 | Outpatient (CLI) | payer MEDICAID, SELFPAY ==
[2022-08-24 11:20] LABS: Absolute Lymphocyte Count 0.92 X10^3/uL (0.83-4.51); Absolute Neutrophil Count 2.2 X10^3/uL (2.0-7.7); Basophil# 0.06 X10^3/uL; Basophil% 1.4 % (0-1); Eosinophil# 0.26 X10^3/uL; Eosinophils% 6.1 % (0-5); Hematocrit 37.6 % (40-54); Hemoglobin 13.4 g/dL (13.0-16.5); Lymphocyte # 0.92 X10^3/ul (0.83-4.51); Lymphocyte % 21.7 % (19-41); Mean Corp Hgb Conc 35.6 g/dL (32-36); Mean Corpuscular Hgb 30.7 pg (27.0-32.0); Mean Corpuscular Volume 86.2 fL (80-94); Mean Platelet Vol. 9.2 fl (6.2-12.0); Monocyte# 0.72 X10^3/uL; NRBC Flagged by Analyzer 0 % (0-5); Neutrophil # 2.23 X10^3/uL (2.7-7.7); Neutrophil % 52.6 % (47-70); Platelet Count 234 K/mm3 (150-450); RBC Distribution Width CV 13.2 % (11.6-14.6); Red Blood Count 4.36 M/mm3 (4.6-6.2); White Blood Count 4.2 K/mm3 (4.4-11.0)
[2022-08-30 15:08] LABS: Alternaria alternata <0.10 kU/L (Class 0); Bermuda Grass <0.10 kU/L (Class 0); Bluegrass, Kentucky <0.10 kU/L (Class 0); Cat Hair/Dander, Standard <0.10 kU/L (Class 0); D farinae Mite <0.10 kU/L (Class 0); D pteronyssinus <0.10 kU/L (Class 0); Dog Epithelia <0.10 kU/L (Class 0); Elm, American White <0.10 kU/L (Class 0); Oak, White <0.10 kU/L (Class 0); Plantain, English <0.10 kU/L (Class 0); Ragweed, Short/Common <0.10 kU/L (Class 0)
[2022-08-30 18:21] LABS: Mouse Urine <0.10 kU/L (Class 0)
[2022-08-31 05:07] LABS: Aspirgillus flavus Negative (Neg:<1:1); Aspirgillus fumigatus Negative (Neg:<1:1); Aspirgillus niger Negative (Neg:<1:1); Cytoplasmic Ab (C-ANCA) <1:20 titer (Neg:<1:20)
[2022-09-02 19:06] LABS: Immunoglobulin E 944 IU/mL (6-495); Perinuclear Ab (P-ANCA) <1:20 titer (Neg:<1:20)
== END | disposition home or self-care (01) ==
LOC: PAVLAB 11:06
PROVIDERS: Referring Provider Nurse Practitioner Acute Care; Visit Provider Nurse Practitioner Acute Care
DX: J44.9 Chronic obstructive pulmonary disease, unspecified (principal)
CPT/HCPCS: 36415; 82785; 85025; 86003; 86256; 86606

== ENCOUNTER → 2022-09-29 | Outpatient (CLI) | payer MEDICAID, SELFPAY | END | disposition home or self-care (01) | LOC: PAVLAB 10:10 | PROVIDERS: Referring Provider Internal Medicine Critical Care Medicine; Visit Provider Internal Medicine Critical Care Medicine | DX: J44.9 Chronic obstructive pulmonary disease, unspecified (principal) | CPT/HCPCS: 36415 ==

== ENCOUNTER 2022-11-15 06:49 | Day surgery (SDC) | payer MEDICAID, SELFPAY ==
[2022-11-14 12:01] VITALS: BMI 23.2
--- NOTE | 2022-11-15 08:25 | CL.D_ITS ---
Patient Name: BERT FULTON Study Date: 11/15/2022 Performing: Denis Ortega MD Ht: 66 inches 167.64 cm : 1960 Wt: 144.01 lbs 65.32 kg Age: 62 Gender: male BSA: 1.74 PROCEDURE(S) PERFORMED DC01-(91770)LHC/COR/LV CLINICAL PROFILE AND INDICATIONS Indications: Suspected CAD Heart Failure: None Stress/Imaging Date: 11/04/22Stress Test with SPECT MPI: Positive Intermediate Risk CAD Presentations: Unstable angina. CONCLUSIONS Non obstructive coronary arteries Severe hypertension RECOMMENDATIONS Medical therapy DESCRIPTION OF PROCEDURE The patient arrived to the procedure lab. The risks and benefits of the procedure as well as a full description of our services here and current unavailability of surgical backup were fully explained to the patient and/or their significant other prior to the catheterization. The Timeout was completed, verifying the correct patient and procedure. The patient's procedural site was prepped and draped in the usual fashion. Local anesthetic was given subcutaneously to right radial region with Lidocaine 2%. Using a modified Seldinger technique, arterial access was obtained via the right radial artery, a 6Fr sheath was inserted. Left Coronary Artery selective angiography was performed in multiple views using a 5 Fr. 4.0 Alexis catheter. Right Coronary Artery selective angiography was then performed in multiple views using a 5 Fr. 4.0 Alexis catheter. Left Ventriculography was performed in RHODES projection using a 5 Fr. Pigtail catheter. LV to AO pullback pressures were then recorded.The arterial sheath was pulled and a TR Band was applied for hemostasis w/ 16ml air CORONARY ANGIOGRAPHY DOMINANCE: Right Dominant LEFT HEART ASSESSMENT Left Ventricular Ejection Fraction: by LV Gram 60 % Normal LV wall motion Normal Left Ventricular systolic function LEFT MAIN: Mildly ectatic with no significant stenosis noted LEFT ANTERIOR DESCENDING ARTERY: Mild luminal irregularities less than 30% CIRCUMFLEX ARTERY: Mild luminal irregularities OM 1: Proximal - Mild luminal irregularities RIGHT CORONARY ARTERY: Mild luminal irregularities COMPLICATIONS No Complications PROCEDURE MEDICATIONS Versed 1 mg IV Fentanyl 50 mcg IV Versed 1 mg IV Oxygen: 2 L/min via nasal cannula Heparin given IA 11/15/2022 08:06:59 Verapamil 2.5mg, Ntg 100mcgs, 3000 units of Heparin given IA 11/15/2022 08:06:59 SUMMARY OF HEMODYNAMIC DATA Time AIR REST ECG 07:19:42 ECG 07:45:15 Art 220/102 (144) 08:03:43 AO 155/83 (112) SA 08:08:32 LV 164/12, 19 08:15:10 LV 161/12, 19 08:15:18 LV 158/13, 25 08:15:51 LV 158/15, 23 08:15:59 LVp 160/16, 24 08:16:02 AOp 165/21 (80) 08:16:10 Signed By Denis Ortega MD On 11/15/2022 08:25:11 Denis Ortega MD
== END 2022-11-15 11:05 | disposition home or self-care (01) ==
LOC: CLSP 06:50
PROVIDERS: PCP Internal Medicine; Referring Provider Internal Medicine Cardiovascular Disease; Visit Provider Internal Medicine Cardiovascular Disease
DX: I21.4 Non-ST elevation (NSTEMI) myocardial infarction (principal); J44.9 Chronic obstructive pulmonary disease, unspecified; I10 Essential (primary) hypertension; R06.02 Shortness of breath; F17.210 Nicotine dependence, cigarettes, uncomplicated; R53.83 Other fatigue; Z86.73 Personal history of transient ischemic attack (TIA), and cerebral infarction without residual deficits
CPT/HCPCS: 93458; 99152; 99153; Q9967; C1769; C1894

== ENCOUNTER → 2022-11-24 | Outpatient (CLI) | payer MEDICAID, SELFPAY ==
--- NOTE | 2022-11-24 13:16 | ADUUE_ITS ---
Reason For Study: Decreased pulse right hand RIGHT Radial artery, mid, 0.27 x 0.28 cm, 126.4 cm/sec. Radial artery, distal, 0.30 x 0.36 cm, 130.2 cm/sec. Ulnar artery, distal, 0.13 x 0.14 cm, 52. 6cm/sec. Ulnar, Radial and Cephalic veins are compressible. No acute occlusion, pseudoaneurysm, or AVM noted. [facility]/US Art Duplex Unilat UP Extrem Interpretation Summary Right radial/ulnar artery, radial/ulnar/cephalic veins patent with no pseudoane urysm of fistula identified. Ordering Physician: Denis Ortega Referring Physician: Mago Eastman Performed By: Zora Reilly RVT
== END | disposition home or self-care (01) ==
LOC: CVS 13:15
PROVIDERS: PCP Internal Medicine; Referring Provider Internal Medicine Cardiovascular Disease; Visit Provider Internal Medicine Cardiovascular Disease
DX: R20.0 Anesthesia of skin (principal); R20.2 Paresthesia of skin; R09.89 Other specified symptoms and signs involving the circulatory and respiratory systems
CPT/HCPCS: 93931